=== PATIENT | male | born 1995 | race Caucasian/White ===

== ENCOUNTER 2019-01-06 21:12 | Emergency (ER) | payer OTHER ==
[~2019-01-06] VITALS: Ht 167.6 cm; Wt 80.0 kg
[2019-01-06 21:16] VITALS: BP 123/75
[2019-01-06] MEDS ORDERED: LIDOCAINE-MPF 1%, 5ML ONE (21:50)
--- NOTE | 2019-01-06 21:51 | NUR ---
PT. CUT LEFT POINTER FINGER WITH A [employer]. BLEEDING CONTROLLED. per triage note ricci muñoz at bed side given lisocaine
[2019-01-06] MEDS ORDERED: LIDOCAINE 1%, 10ML INFIL ONE (22:00)
--- NOTE | 2019-01-06 22:33 | NUR ---
wanda wynne is suturing now
[2019-01-06] MEDS ORDERED: BACITRACIN ZINC OINT 500U/GM, 0.9 GM ONE (22:42)
--- NOTE | 2019-01-06 23:03 | NUR ---
given dc instruction pt understood dressing was done by [employer] pt up ambulated to check out
== END 2019-01-06 23:05 | disposition home or self-care (01) ==
LOC: ED 22:50
DX: S61.211A Laceration without foreign body of left index finger without damage to nail, initial encounter (principal); W27.8XXA Contact with other nonpowered hand tool, initial encounter; Y93.89 Activity, other specified; Y92.009 Unspecified place in unspecified non-institutional (private) residence as the place of occurrence of the external cause; Y99.8 Other external cause status
CPT/HCPCS: 12041; 99284